=== PATIENT | female | born 1930 ===

== ENCOUNTER 2018-09-13 16:38 | Observation (INO) | payer MEDICARE, MEDICAID ==
--- NOTE | 2018-09-13 17:34 | C.PDOC ---
History Of Present Illness Patient is an 87 year old female with pmhx of DM, ESRD(HD MWF), HTN, HLD, CAD, arthritis who presents to ED today, sent in by Dialysis center for abnormal labs. Patient reports she recently started HD 3 months ago due to renal failure of unknown origin, and compliance with sessions as instructed. Paperwork from dialysis center reports HTN of 210/84 and hyperkalemia of 7.3 on labs taken Tuesday. Patient did not receive HD, and was sent to ED for further evaluation. Patient reports an episode of nausea this morning associated with worsening vertigo her PMD attributed to dialysis. Denies chest pain, palpitations, SOB, swelling. <Brandie White - Last Filed: 09/13/18 18:58> <Emperatriz Blevins - Last Filed: 09/13/18 18:40> History Per: Patient History/Exam Limitations: no limitations Additional History Per: Family <Brandie White - Last Filed: 09/13/18 18:58> Time Seen by Provider: 09/13/18 16:56 Chief Complaint (Nursing): Abnormal Labs Past Medical History Vital Signs: Last Vital Signs Temp 97.6 F 09/13/18 16:52 Pulse 66 09/13/18 16:52 Resp 18 09/13/18 16:52 BP 160/63 H 09/13/18 16:52 Pulse Ox 97 09/13/18 17:34 <Emperatriz Blevins - Last Filed: 09/13/18 18:40> Vital Signs: Last Vital Signs Temp 97.6 F 09/13/18 16:52 Pulse 66 09/13/18 16:52 Resp 18 09/13/18 16:52 BP 160/63 H 09/13/18 16:52 Pulse Ox 97 09/13/18 16:52 - Medical History PMH: Arthritis, Asthma, Diabetes, HTN, Hypercholesterolemia, End Stage Renal Disease Surgical History: CABG Other Surgeries: Aortic valve Family History: States: Unknown Family Hx - Social History Hx Alcohol Use: No Hx Substance Use: No - Immunization History Hx Tetanus Toxoid Vaccination: No Hx Influenza Vaccination: No Hx Pneumococcal Vaccination: Yes <Barndie White - Last Filed: 09/13/18 18:58> Review Of Systems Constitutional: Negative for: Weakness Eyes: Negative for: Vision Change Cardiovascular: Negative for: Chest Pain, Palpitations, Orthopnea, Edema Respiratory: Negative for: Cough, Shortness of Breath Gastrointestinal: Positive for: Nausea. Negative for: Vomiting Genitourinary: Positive for: Frequency (increased frequency) Neurological: Positive for: Dizziness <Brandie White - Last Filed: 09/13/18 18:58> Physical Exam - Physical Exam Appears: Non-toxic, No Acute Distress Skin: Normal Color, Warm, Dry Head: Atraumatic, Normacephalic Eye(s): bilateral: Normal Inspection, EOMI Oral Mucosa: Moist Neck: Normal Chest: Other (midline sternotomy scar, right dialysis chest port) Cardiovascular: Rhythm Regular, Murmur Respiratory: Normal Breath Sounds, No Decreased Breath Sounds, No Rales Gastrointestinal/Abdominal: Normal Exam, Bowel Sounds, Soft Extremity: No Pedal Edema, No Calf Tenderness Neurological/Psych: Oriented x3 <Brandie White - Last Filed: 09/13/18 18:58> ED Course And Treatment - Laboratory Results Result Diagrams: 09/13/18 18:13 09/13/18 18:13 <Emperatriz Blevins - Last Filed: 09/13/18 18:40> - Laboratory Results Result Diagrams: 09/13/18 18:13 09/13/18 18:13 Lab Interpretation: Abnormal Interpretation Of Abnormal: hyperkalemia ECG: Viewed By Ri ECG Rhythm: Sinus Rhythm, L BBB ECG Interpretation: Abnormal O2 Sat by Pulse Oximetry: 97 Pulse Ox Interpretation: Normal - Radiology CXR: Viewed By Me CXR Interpretation: Yes: No Acute Disease - Physician Consult Information Time Consulting Physician Contacted: 18:15 Physician Contacted: [place] Renee Outcome Of Conversation: Spoke with Dr. Renee who said Dr. Kim was covering and had put dialysis orders in for patient <Brandie White - Last Filed: 09/13/18 18:58> Supervising Attending Note - Supervising Attending Note Comment: RESIDENT - Attestation: I have personally seen and examined this patient.: Yes I have fully participated in the care of the patient.: Yes I have reviewed all pertinent clinical information, including history, physical exam and plan: Yes - Notes: Notes:: REFERRED FROM HD FOR HTN. UNABLE TO DO HD DUE TO HTN, REFERRED TO ER. PT DENIES SX @ THIS TIME. SP LAST ROUTINE HD 3 DAYS AGO. EXMA NEG. PER HD PAPERWORK, K = 7 ON 09/11, ?HEMOLYZED OR PREHD. ABN EKG, NO PRIOR. TX PRESUMPTIVE HYPERK, DR RENEE, ADMIT <Emperatriz Blevins - Last Filed: 09/13/18 18:40> Medical Decision Making Medical Decision Makin87 year old female sent in for evaluation and treatment of HTN and hyperkalemia CBC CMP UA EKG CXR Ca Gluc Insulin 10U/D50 ordered, on hold pending dialysis orders Spoke with Dr. Renee; he reports Dr. Kim who is covering is already aware of pt and will put dialysis orders in <Brandie White - Last Filed: 09/13/18 18:58> Disposition - Disposition Disposition Time: 18:40 - POA Present On Arrival: None <Emperatriz Blevins - Last Filed: 09/13/18 18:40> Discussed With : Ralph Kim Comment: Will admit patient Doctor Will See Patient In The: Hospital Counseled Patient/Family Regarding: Studies Performed, Diagnosis, Need For Followup <Brandie White - Last Filed: 09/13/18 18:58> - Disposition Disposition: HOSPITALIZED Condition: SERIOUS Forms: [facility] (Kyrgyz) - Clinical Impression Clinical Impression: Hyperkalemia, ESRD (end stage renal disease) on dialysis
[2018-09-13] MEDS ORDERED: Calcium Gluconate 4.65 MEQ in Dextrose 5% In Water 100 ML IV STA (17:38)
[2018-09-13] MEDS ORDERED: (Novolin R) Insulin Human Regular 100 units/ml vial IV STA (17:38)
[2018-09-13] MEDS ORDERED: Dextrose 50% SYRINGE Inj (50 ml) IVP STA (17:38)
[2018-09-13 18:23] LABS: BASO % 0.2 % (0.0-2.0); EOS # 0.1 K/uL (0.0-0.7); EOS % 1.2 % (0.0-4.0); HEMOGLOBIN 11.1 g/dL (11.0-16.0); LYMPH # 0.9 K/uL (1.0-4.3); LYMPH % 17.7 % (20.0-40.0); MEAN CELL VOLUME 94.9 fL (81.0-99.0); MEAN CORPUSCULAR HEMOGLOBIN 32.3 pg (27.0-31.0); MEAN PLATELET VOLUME 8.6 fL (7.2-11.7); MONO # 0.3 K/uL (0.0-0.8); MONO % 6.3 % (0.0-10.0); NEUT # 3.9 K/uL (1.8-7.0); NEUT % 74.6 % (50.0-75.0); RBC 3.43 Mil/uL (3.80-5.20); WHITE BLOOD COUNT 5.2 K/uL (4.8-10.8)
--- NOTE | 2018-09-13 18:26 | RAD ---
HISTORY: Palpations COMPARISON: None available. TECHNIQUE: Chest, one view. FINDINGS: Right IJ central venous dialysis catheter extends the cavoatrial/RA. LUNGS: Hypoinflation. No focal consolidation. Please note that chest x-ray has limited sensitivity for the detection of pulmonary masses. PLEURA: No significant pleural effusion identified. No definite pneumothorax . CARDIOVASCULAR: Median sternotomy wires. Borderline cardiomegaly. Atherosclerotic calcifications of the aorta. OSSEOUS STRUCTURES: Degenerative changes. VISUALIZED UPPER ABDOMEN: Unremarkable. OTHER FINDINGS: None. IMPRESSION: Right IJ dialysis catheter. Borderline cardiomegaly. Hypoinflation.
[2018-09-13 18:34] LABS: ALB/GLOB RATIO 1.6 (1.0-2.1); ALBUMIN 3.9 g/dL (3.5-5.0); CALCIUM 9.8 mg/dl (8.6-10.4)
[2018-09-13 18:41] LABS: PROTHROMBIN TIME 11.1 SECONDS (9.7-12.2)
[2018-09-13] MEDS ORDERED: (Novolin R) Insulin Human Regular 100 units/ml vial ONE (19:26)
[2018-09-13] MEDS ORDERED: Dextrose 50% SYRINGE Inj (50 ml) ONE (19:27)
[2018-09-13] MEDS ORDERED: Calcium Gluconate 4.65 mEq/10 ml Inj ONE (19:27)
[2018-09-13] MEDS ORDERED: Nitroglycerin 2% Ointment Foilpak UD TOP SCH (21:24)
[2018-09-14] MEDS ORDERED: Labetalol Hydrochloride 300 mg Tab PO ONE (00:21)
[2018-09-14] MEDS: Nitroglycerin 2% Ointment Foilpak UD TOP SCH ×2 (05:26→11:43)
[2018-09-14 06:06] LABS: SQUAMOUS EPITHIAL 1 /hpf (0-5); URINE BILIRUBIN NEGATIVE (NEGATIVE); URINE BLOOD NEGATIVE (NEGATIVE); URINE CLARITY Clear (Clear); URINE COLOR Yellow (YELLOW); URINE GLUCOSE (UA) NORMAL (Normal); URINE LEUKOCYTE ESTERASE NEG Leu/uL (Negative); URINE PROTEIN 2+ mg/dL (NEGATIVE); URINE UROBILINOGEN NORMAL mg/dL (0.2-1.0)
--- NOTE | 2018-09-14 11:03 | CP.PCM.CON ---
History of Present Illness - History of Present Illness History of Present Illness: Patient is an 87 year old female with pmhx of DM, ESRD(HD MWF), HTN, HLD, CAD, arthritis who presents to ED today, sent in by Dialysis center for abnormal labs. Patient reports she recently started HD 3 months ago due to renal failure of unknown origin, and compliance with sessions as instructed. Paperwork from dialysis center reports HTN of 210/84 and hyperkalemia of 7.3 on labs taken Tuesday. Patient did not receive HD, and was sent to ED for further evaluation. Patient reports an episode of nausea this morning associated with worsening vertigo her PMD attributed to dialysis. Denies chest pain, palpitations, SOB, swelling. Started dialysis 3 mos ago s/p CABG at [facility] has h/o hyperkalemia Vital Signs: Last Vital Signs Temp 97.6 F 09/13/18 16:52 Pulse 66 09/13/18 16:52 Resp 18 09/13/18 16:52 BP 160/63 H 09/13/18 16:52 Pulse Ox 97 09/13/18 16:52 - Medical History PMH: Arthritis, Asthma, Diabetes, HTN, Hypercholesterolemia, End Stage Renal Disease Surgical History: CABG Other Surgeries: Aortic valve Family History: States: Unknown Family Hx - Social History Hx Alcohol Use: No Hx Substance Use: No - Immunization History Hx Tetanus Toxoid Vaccination: No Hx Influenza Vaccination: No Hx Pneumococcal Vaccination: Yes <Brandie White - Last Filed: 09/13/18 18:58> Review Of Systems Constitutional: Negative for: Weakness Eyes: Negative for: Vision Change Cardiovascular: Negative for: Chest Pain, Palpitations, Orthopnea, Edema Respiratory: Negative for: Cough, Shortness of Breath Gastrointestinal: Positive for: Nausea. Negative for: Vomiting Genitourinary: Positive for: Frequency (increased frequency) Neurological: Positive for: Dizziness Review of Systems - Review of Systems All systems: reviewed and no additional remarkable complaints except - Constitutional Constitutional: Fatigue, Weakness - EENT Eyes: absent: As Per HPI, Blind Spots, Blurred Vision, Change in Vision, Decreased Night Vision, Diplopia, Discharge, Dry Eye, Exophthalmos, Floaters, Irritation, Itchy Eyes, Loss of Peripheral Vision, Pain, Photophobia, Requires Corrective Lenses, Sees Flashes, Spots in Vision, Tunnel Vision, Other Visual Disturbances, Loss of Vision, Other Ears: absent: As Per HPI, Decreased Hearing, Ear Discharge, Ear Pain, Tinnitus, Abnormal Hearing, Disequilibrium, Dizziness, Other Nose/Mouth/Throat: absent: As Per HPI, Epistaxis, Nasal Congestion, Nasal Discharge, Nasal Obstruction, Nasal Trauma, Nose Pain, Post Nasal Drip, Sinus Pain, Sinus Pressure, Bleeding Gums, Change in Voice, Dental Pain, Dry Mouth, Dysphagia, Halitosis, Hoarsness, Lip Swelling, Mouth Lesions, Mouth Pain, Odynophagia, Sore Throat, Throat Swelling, Tongue Swelling, Facial Pain, Neck Pain, Neck Mass, Other - Cardiovascular Cardiovascular: Dyspnea on Exertion - Gastrointestinal Gastrointestinal: Nausea - Genitourinary Genitourinary: Voiding Freq/Small Amts - Musculoskeletal Musculoskeletal: Muscle Weakness, Myalgias - Neurological Neurological: Dizziness, Weakness Past Patient History - Past Medical History & Family History Past Family History: Reviewed and not pertinent - Past Social History Smoking Status: Never Smoked Chewing Tobacco Use: No Cigar Use: No Alcohol: None Drugs: Denies Home Situation {Lives}: With Family - CARDIAC Hx Hypercholesterolemia: Yes Hx Hypertension: Yes - PULMONARY Hx Asthma: Yes - RENAL Type of Dialysis Access: rt. permacath Date of Last Dialysis Treatment: 09/11/18 - ENDOCRINE/METABOLIC Hx Diabetes Mellitus Type 2: Yes - MUSCULOSKELETAL/RHEUMATOLOGICAL Hx Arthritis: Yes - PSYCHIATRIC Hx Substance Use: No - SURGICAL HISTORY Hx Coronary Artery Bypass Graft: Yes - ANESTHESIA Hx Anesthesia: Yes Hx Anesthesia Reactions: No Hx Malignant Hyperthermia: No Meds Allergies/Adverse Reactions: Allergies Allergy/AdvReac Type Severity Reaction Status Date / Time No Known Allergies Allergy Verified 09/13/18 17:01 - Medications Medications: Current Medications Heparin Sodium (Porcine) (Heparin) 5,000 units SC Q8 [facility] Last Admin: 09/14/18 05:27 Dose: 5,000 units Labetalol HCl (Trandate) 600 mg PO BID [facility] Last Admin: 09/14/18 09:45 Dose: Not Given Nitroglycerin (Nitro-Bid 2% Oint) 1 ea TOP Q6 [facility] Last Admin: 09/14/18 05:26 Dose: 1 ea Physical Exam - Constitutional Appears: No Acute Distress, Chronically Ill - Head Exam Head Exam: ATRAUMATIC, NORMAL INSPECTION - Eye Exam Eye Exam: EOMI, Normal appearance - Neck Exam Neck exam: Positive for: Normal Inspection. Negative for: Tenderness - Respiratory Exam Respiratory Exam: Clear to Auscultation Bilateral, NORMAL BREATHING PATTERN - Cardiovascular Exam Cardiovascular Exam: REGULAR RHYTHM, +S1 - GI/Abdominal Exam GI & Abdominal Exam: Soft. absent: Tenderness - Extremities Exam Extremities exam: Positive for: normal inspection. Negative for: tenderness - Neurological Exam Neurological exam: Alert, Oriented x3 - Skin Skin Exam: Dry, Warm Results - Vital Signs Recent Vital Signs: Last Vital Signs Temp 98.1 F 09/14/18 08:48 Pulse 61 09/14/18 08:48 Resp 20 09/14/18 08:48 BP 180/65 H 09/14/18 08:48 Pulse Ox 96 09/14/18 08:48 - Labs Result Diagrams: 09/13/18 18:13 09/13/18 18:13 Labs: Laboratory Results - last 24 hr 09/13/18 09/13/18 09/13/18 16:49 18:13 18:13 WBC 5.2 RBC 3.43 L Hgb 11.1 Hct 32.5 L MCV 94.9 MCH 32.3 H MCHC 34.0 RDW 16.0 H Plt Count 146 MPV 8.6 Neut % (Auto) 74.6 Lymph % (Auto) 17.7 L [place] % (Auto) 6.3 Eos % (Auto) 1.2 Baso % (Auto) 0.2 Neut # (Auto) 3.9 Lymph # (Auto) 0.9 L [place] # (Auto) 0.3 Eos # (Auto) 0.1 Baso # (Auto) 0.0 PT INR APTT Sodium 133 Potassium 5.6 H Chloride 93 L Carbon Dioxide 30 Anion Gap 15 BUN 41 H Creatinine 4.6 H Est GFR ( Amer) 11 Est GFR (Non-Af Amer) 9 POC Glucose (mg/dL) 180 H Random Glucose 152 H Calcium 9.8 Total Bilirubin 0.6 AST 30 ALT 23 Alkaline Phosphatase 98 Total Protein 6.4 Albumin 3.9 Globulin 2.5 Albumin/Globulin Ratio 1.6 Urine Color Urine Clarity Urine pH Ur Specific [place] Urine Protein Urine Glucose (UA) Urine Ketones Urine Blood Urine Nitrate Urine Bilirubin Urine Urobilinogen Ur Leukocyte Esterase Urine WBC (Auto) Urine RBC (Auto) Ur Squamous Epith Cells 04/10/19 04/11/19 04/11/19 18:20 05:56 06:36 WBC RBC Hgb Hct MCV MCH MCHC RDW Plt Count MPV Neut % (Auto) Lymph % (Auto) [place] % (Auto) Eos % (Auto) Baso % (Auto) Neut # (Auto) Lymph # (Auto) [place] # (Auto) Eos # (Auto) Baso # (Auto) PT 11.1 INR 1.0 APTT 36 H Sodium Potassium Chloride Carbon Dioxide Anion Gap BUN Creatinine Est GFR ( Amer) Est GFR (Non-Af Amer) POC Glucose (mg/dL) 124 H Random Glucose Calcium Total Bilirubin AST ALT Alkaline Phosphatase Total Protein Albumin Globulin Albumin/Globulin Ratio Urine Color Yellow Urine Clarity Clear Urine pH 7.0 Ur Specific [place] 1.006 Urine Protein 2+ H Urine Glucose (UA) Normal Urine Ketones Negative Urine Blood Negative Urine Nitrate Negative Urine Bilirubin Negative Urine Urobilinogen Normal Ur Leukocyte Esterase Neg Urine WBC (Auto) 1 Urine RBC (Auto) < 1 Ur Squamous Epith Cells 1 Assessment & Plan (1) ESRD (end stage renal disease) on dialysis Status: Acute (2) Hyperkalemia Status: Acute (3) Hypertensive chronic kidney disease with stage 5 chronic kidney disease or end stage renal disease Status: Acute (4) CAD (coronary artery disease) Status: Acute (5) Type 2 diabetes mellitus with diabetic nephropathy Status: Acute - Assessment and Plan (Free Text) Plan: Immediate dialysis Ask vascular if AV access possible- told of poor veins Consider rx hyperkalemia if needed
[2018-09-14 11:38] VITALS: RESP 17
--- NOTE | 2018-09-14 12:43 | CARD ---
APPROVED REPORT Date of service: 09/13/2018 EKG Measurement Heart [id number] <Conclusion> Normal sinus rhythm Left bundle branch block Abnormal ECG
--- NOTE | 2018-09-14 14:26 | CP.PCM.CON ---
History of Present Illness - History of Present Illness History of Present Illness: Vascular Surgery Consult Note for Dr. Ellison 87 F PMH of DM, ESRD on HD (MWF), HTN, HLD, CAD, arthritis who was sent in by Dialysis center for abnormal labs. Patient started HD 3 months ago. Patient had HTN of 210/84 and hyperkalemia of 7.3 at dialysis. Vascular Surgery Consulted for HD access. Patient currently has permacath. She has history of poor venous access. Patient states she does not feel well but no specific complaint. PMH: Arthritis, Asthma, Diabetes, HTN, Hypercholesterolemia, End Stage Renal Disease PSH: CABG, Aortic valve ALL: NKDA Review of Systems - Review of Systems All systems: reviewed and no additional remarkable complaints except (as per HPI) Past Patient History - Past Medical History & Family History Past Family History: Reviewed and not pertinent - Past Social History Smoking Status: Never Smoked Chewing Tobacco Use: No Cigar Use: No Alcohol: None Drugs: Denies Home Situation {Lives}: With Family - CARDIAC Hx Hypercholesterolemia: Yes Hx Hypertension: Yes - PULMONARY Hx Asthma: Yes - RENAL Type of Dialysis Access: rt. permacath Date of Last Dialysis Treatment: 09/11/18 - ENDOCRINE/METABOLIC Hx Diabetes Mellitus Type 2: Yes - MUSCULOSKELETAL/RHEUMATOLOGICAL Hx Arthritis: Yes - PSYCHIATRIC Hx Substance Use: No - SURGICAL HISTORY Hx Coronary Artery Bypass Graft: Yes - ANESTHESIA Hx Anesthesia: Yes Hx Anesthesia Reactions: No Hx Malignant Hyperthermia: No Meds Home Medications: Home Medication List Medication Instructions Recorded Confirmed Type amLODIPine [Norvasc] 5 mg PO DAILY #30 tab 09/14/18 Rx Allergies/Adverse Reactions: Allergies Allergy/AdvReac Type Severity Reaction Status Date / Time No Known Allergies Allergy Verified 09/13/18 17:01 - Medications Medications: Current Medications Amlodipine Besylate (Norvasc) 5 mg PO DAILY [facility] Heparin Sodium (Porcine) (Heparin) 5,000 units SC Q8 [facility] Last Admin: 09/14/18 05:27 Dose: 5,000 units Heparin Sodium (Porcine) (Heparin (For Dialysis)) 4,000 units IVP TTS [facility] Stop: 09/20/18 12:31 Last Admin: 09/14/18 12:55 Dose: 4,000 units Labetalol HCl (Trandate) 600 mg PO BID [facility] Last Admin: 09/14/18 09:45 Dose: Not Given Nitroglycerin (Nitro-Bid 2% Oint) 1 ea TOP Q6 [facility] Last Admin: 09/14/18 11:43 Dose: Not Given Sodium Polystyrene Sulfonate (Kayexalate) 15 gm PO MWF [facility] Physical Exam - Additional Findings Additional findings: - Constitutional Appears: No Acute Distress, Chronically Ill - Head Exam Head Exam: ATRAUMATIC, NORMAL INSPECTION - Eye Exam Eye Exam: EOMI, Normal appearance - Neck Exam Neck exam: Positive for: Normal Inspection. Negative for: Tenderness - Respiratory Exam Respiratory Exam: Clear to Auscultation Bilateral, NORMAL BREATHING PATTERN - Cardiovascular Exam Cardiovascular Exam: REGULAR RHYTHM, +S1 - GI/Abdominal Exam GI & Abdominal Exam: Soft. absent: Tenderness - Extremities Exam Extremities exam: Positive for: normal inspection. Negative for: tenderness - Neurological Exam Neurological exam: Alert, Oriented x3 - Skin Skin Exam: Dry, Warm Results - Vital Signs Recent Vital Signs: Last Vital Signs Temp 97.5 F L 09/14/18 10:00 Pulse 65 09/14/18 10:59 Resp 17 09/14/18 10:59 BP 179/63 H 09/14/18 13:00 Pulse Ox 100 09/14/18 10:00 - Labs Result Diagrams: 09/13/18 18:13 09/13/18 18:13 Labs: Laboratory Results - last 24 hr 09/13/18 09/13/18 09/13/18 16:49 18:13 18:13 WBC 5.2 RBC 3.43 L Hgb 11.1 Hct 32.5 L MCV 94.9 MCH 32.3 H MCHC 34.0 RDW 16.0 H Plt Count 146 MPV 8.6 Neut % (Auto) 74.6 Lymph % (Auto) 17.7 L [place] % (Auto) 6.3 Eos % (Auto) 1.2 Baso % (Auto) 0.2 Neut # (Auto) 3.9 Lymph # (Auto) 0.9 L [place] # (Auto) 0.3 Eos # (Auto) 0.1 Baso # (Auto) 0.0 PT INR APTT Sodium 133 Potassium 5.6 H Chloride 93 L Carbon Dioxide 30 Anion Gap 15 BUN 41 H Creatinine 4.6 H Est GFR ( Amer) 11 Est GFR (Non-Af Amer) 9 POC Glucose (mg/dL) 180 H Random Glucose 152 H Calcium 9.8 Total Bilirubin 0.6 AST 30 ALT 23 Alkaline Phosphatase 98 Total Protein 6.4 Albumin 3.9 Globulin 2.5 Albumin/Globulin Ratio 1.6 Urine Color Urine Clarity Urine pH Ur Specific [place] Urine Protein Urine Glucose (UA) Urine Ketones Urine Blood Urine Nitrate Urine Bilirubin Urine Urobilinogen Ur Leukocyte Esterase Urine WBC (Auto) Urine RBC (Auto) Ur Squamous Epith Cells 09/13/18 09/14/18 09/14/18 18:20 05:56 06:36 WBC RBC Hgb Hct MCV MCH MCHC RDW Plt Count MPV Neut % (Auto) Lymph % (Auto) [place] % (Auto) Eos % (Auto) Baso % (Auto) Neut # (Auto) Lymph # (Auto) [place] # (Auto) Eos # (Auto) Baso # (Auto) PT 11.1 INR 1.0 APTT 36 H Sodium Potassium Chloride Carbon Dioxide Anion Gap BUN Creatinine Est GFR ( Amer) Est GFR (Non-Af Amer) POC Glucose (mg/dL) 124 H Random Glucose Calcium Total Bilirubin AST ALT Alkaline Phosphatase Total Protein Albumin Globulin Albumin/Globulin Ratio Urine Color Yellow Urine Clarity Clear Urine pH 7.0 Ur Specific [place] 1.006 Urine Protein 2+ H Urine Glucose (UA) Normal Urine Ketones Negative Urine Blood Negative Urine Nitrate Negative Urine Bilirubin Negative Urine Urobilinogen Normal Ur Leukocyte Esterase Neg Urine WBC (Auto) 1 Urine RBC (Auto) < 1 Ur Squamous Epith Cells 1 09/14/18 11:57 WBC RBC Hgb Hct MCV MCH MCHC RDW Plt Count MPV Neut % (Auto) Lymph % (Auto) [place] % (Auto) Eos % (Auto) Baso % (Auto) Neut # (Auto) Lymph # (Auto) [place] # (Auto) Eos # (Auto) Baso # (Auto) PT INR APTT Sodium Potassium Chloride Carbon Dioxide Anion Gap BUN Creatinine Est GFR ( Amer) Est GFR (Non-Af Amer) POC Glucose (mg/dL) 201 H Random Glucose Calcium Total Bilirubin AST ALT Alkaline Phosphatase Total Protein Albumin Globulin Albumin/Globulin Ratio Urine Color Urine Clarity Urine pH Ur Specific [place] Urine Protein Urine Glucose (UA) Urine Ketones Urine Blood Urine Nitrate Urine Bilirubin Urine Urobilinogen Ur Leukocyte Esterase Urine WBC (Auto) Urine RBC (Auto) Ur Squamous Epith Cells Assessment & Plan - Assessment and Plan (Free Text) Assessment: 87 F with ESRD on HD Plan: -Vein mapping -Continue HD with permacath as per Nephro -Will evaluate for AVF -Management as per primary -Discussed with Terra Alonso PGY2 - Date & Time Date: 09/14/18 Time: 15:00
[2018-09-14 14:41] VITALS: BP 103/47; TEMP 97.3; O2SAT 99
[2018-09-14 14:59] VITALS: PULSE 69
--- NOTE | 2018-09-14 15:34 | CP.PCM.PN ---
Subjective - Date & Time of Evaluation Date of Evaluation: 09/14/18 Time of Evaluation: 15:00 - Subjective Subjective: Patient seen after HD today denies any chest pain, sob, dizziness vss- stable s/p HD today Objective - Vital Signs/Intake and Output Vital Signs (last 24 hours): Temp Pulse Resp BP Pulse Ox 97.3 F L 65 17 103/47 L 99 09/14/18 13:20 09/14/18 13:20 09/14/18 13:20 09/14/18 13:20 09/14/18 13:20 - Medications Medications: Current Medications Amlodipine Besylate (Norvasc) 5 mg PO DAILY [facility] Heparin Sodium (Porcine) (Heparin) 5,000 units SC Q8 [facility] Last Admin: 09/14/18 14:55 Dose: Not Given Heparin Sodium (Porcine) (Heparin (For Dialysis)) 4,000 units IVP TTS [facility] Stop: 09/20/18 12:31 Last Admin: 09/14/18 12:55 Dose: 4,000 units Labetalol HCl (Trandate) 600 mg PO BID [facility] Last Admin: 09/14/18 09:45 Dose: Not Given Nitroglycerin (Nitro-Bid 2% Oint) 1 ea TOP Q6 [facility] Last Admin: 09/14/18 11:43 Dose: Not Given Sodium Polystyrene Sulfonate (Kayexalate) 15 gm PO MWF [facility] - Labs Labs: 09/13/18 18:13 09/13/18 18:13 PT 11.1 SECONDS (9.7-12.2) 09/13/18 18:20 INR 1.0 09/13/18 18:20 APTT 36 SECONDS (21-34) H 09/13/18 18:20 Assessment and Plan - Assessment and Plan (Free Text) Assessment: a/p 87 year old female with pmhx of DM, ESRD(HD MWF), HTN, HLD, CAD, arthritis who presents to ED today, sent in by Dialysis center for abnormal labs. Paperwork from dialysis center reports HTN of 210/84 and hyperkalemia of 7.3 on labs taken Tuesday. Patient did not receive HD, and was sent to ED for further evaluation. PT ALOS REPOERTED episode of nausea this morning and admitted with Hyperkalemia, ESRD needs on dialysis Patient received d50 with insulin and calcium gluconate for hyperkalemia HD done today and patient denies any complaints vein mapping done for AV fistula D/w Surgical team , fanny bone rdischarge home today and f/u with Dr. López office out patient for AV fistula Discussed with Dr. Kim, cleared for discharge home today and f/u with PMD and continue HD as scheduled discharge plan discussed with patient vis circuit court judge system , who understands and agrees with plan
--- NOTE | 2018-09-14 22:36 | CP.PCM.HP ---
Present on Admission - Present on Admission Any Indicators Present on Admission: No Past Patient History - Past Medical History & Family History Past Family History: Reviewed and not pertinent - Past Social History Smoking Status: Never Smoked Chewing Tobacco Use: No Cigar Use: No Alcohol: None Drugs: Denies Home Situation {Lives}: With Family - CARDIAC Hx Hypercholesterolemia: Yes Hx Hypertension: Yes - PULMONARY Hx Asthma: Yes - RENAL Type of Dialysis Access: rt. permacath Date of Last Dialysis Treatment: 09/11/18 - ENDOCRINE/METABOLIC Hx Diabetes Mellitus Type 2: Yes - MUSCULOSKELETAL/RHEUMATOLOGICAL Hx Arthritis: Yes - PSYCHIATRIC Hx Substance Use: No - SURGICAL HISTORY Hx Coronary Artery Bypass Graft: Yes - ANESTHESIA Hx Anesthesia: Yes Hx Anesthesia Reactions: No Hx Malignant Hyperthermia: No Meds Home Medications: Home Medication List Medication Instructions Recorded Confirmed Type amLODIPine [Norvasc] 5 mg PO DAILY #30 tab 09/14/18 Rx Allergies/Adverse Reactions: Allergies Allergy/AdvReac Type Severity Reaction Status Date / Time No Known Allergies Allergy Verified 09/13/18 17:01 Results - Vital Signs Recent Vital Signs: Last Vital Signs Temp 97.3 F L 09/14/18 13:20 Pulse 65 09/14/18 13:20 Resp 17 09/14/18 13:20 BP 103/47 L 09/14/18 13:20 Pulse Ox 99 09/14/18 13:20 - Labs Result Diagrams: 09/13/18 18:13 09/13/18 18:13 Labs: Laboratory Results - last 24 hr 09/14/18 09/14/18 09/14/18 05:56 06:36 11:57 POC Glucose (mg/dL) 124 H 201 H Urine Color Yellow Urine Clarity Clear Urine pH 7.0 Ur Specific [place] 1.006 Urine Protein 2+ H Urine Glucose (UA) Normal Urine Ketones Negative Urine Blood Negative Urine Nitrate Negative Urine Bilirubin Negative Urine Urobilinogen Normal Ur Leukocyte Esterase Neg Urine WBC (Auto) 1 Urine RBC (Auto) < 1 Ur Squamous Epith Cells 1
--- NOTE | 2018-09-15 03:44 | HP ---
CHIEF COMPLAINT: Abnormal labs. HISTORY OF PRESENT ILLNESS: This is an 87-year-old female with history of type 2 diabetes, hypertension, hyperlipidemia, coronary artery disease, status post CABG, osteoarthritis, CKD, on hemodialysis Tuesday, Tuesday and Tuesday. Followed up by Dr. Wagner. On the day of admission, she came to dialysis unit for her routine hemodialysis, and she was found to have abnormal labs and high blood pressure. Then, she was referred to emergency room. According to the patient, she was started on hemodialysis few months ago. Exact etiology of renal failure is unknown, but it seemed like a diabetic kidney disease. In the dialysis unit, the patient was found to have a potassium of 7.3 with a blood pressure of 210/84. The patient was weak. Since then, the patient was referred to the emergency room. Today when I saw the patient, she was in dialysis unit, undergoing hemodialysis, feeling better. The patient has . She denies any dyspnea, orthopnea, or PND. She is weak. She is tired. She is fatigued. She has palpitation. She has nausea. She did not have vomiting. She feels generalized weakness. There is no history of chest pain, coughing, shortness of breath or sweating. There is no history of polyuria, polydipsia, or polyphagia. There is no history of hematuria or pyuria. There is no history of sneezing, itchy eyes, or itchy nose. There is no history of cough, sore throat or runny nose. Denies knee pain, leg pain. There is tingling, numbness, and paresthesias of the feet. There is no history of sneezing, sneezing, itchy eyes, or itchy nose. There is no history of fever or chills. There is no history of loss of consciousness or seizure-like activity. PAST MEDICAL HISTORY: Hypertension, hyperlipidemia, CKD, on hemodialysis, and diabetes. SOCIAL HISTORY: Nonsmoker, non-ETOH user. CURRENT MEDICATIONS: She is on labetalol 200 mg b.i.d. and amlodipine 5 mg daily. FAMILY HISTORY: Noncontributory. PHYSICAL EXAMINATION: GENERAL: An elderly female, on hemodialysis machine, in no acute distress. VITAL SIGNS: Blood pressure 102/47, pulse 65, respiratory rate 17, temperature 97.3. SKIN: Senile turgor. No bruises. No purpura. No petechia. HEENT: Atraumatic and normocephalic. Negative pallor. Negative jaundice. NECK: Supple. No JVD. No lymph node. No thyromegaly. No carotid bruits. CHEST WALL: Bilateral symmetrical expansion. No tenderness. No deformity. LUNGS: Bilateral basal rales. Decreased air entry. No rub. CARDIOVASCULAR SYSTEM: S1 and S2, regular. Has 2/6 systolic ejection murmur at the apex and a midline scar of old CABG. ABDOMEN: Soft and nontender. Bowel sounds are positive. RECTAL: Deferred because the patient is on dialysis machine. PELVIS: Deferred because the patient is on dialysis machine. CENTRAL NERVOUS SYSTEM: Alert and oriented x3. Cranial nerves II through XII are normal. Moving all extremities. ASSESSMENT: 1. Hyperkalemia, chronic kidney disease. 2. Accelerated hypertension, rule out hypertensive heart disease. 3. History of type 2 diabetes. 4. Hyperlipidemia. PLAN: Admit. Emergency hemodialysis. Monitor the patient. Ralph Kim MD
--- NOTE | 2018-09-15 11:39 | VASCLAB ---
Date of service: 09/14/2018 PROCEDURE: Bilateral Upper Extremity Venous Mapping HISTORY: Vein mapping, Pre-op AVF, ESRD. PRIORS: None. TECHNIQUE: Bilateral upper extremity, internal jugular, subclavian, axillary, brachial, ulnar, radial, basilic and upper cephalic veins were evaluated. Flow was assessed with color Doppler, compressibility, assessment of phasic flow and augmentation response. Report prepared by FLAVIO Patton FINDINGS: RIGHT: 1. Internal Jugular Vein: Compressibility - Fully compressible: Thrombus - None : Flow - Phasic 2. Subclavian Vein: Catheter in area. 3. Axillary Vein: Compressibility - Fully compressible: Thrombus - None 4. Brachial Vein: Compressibility - Fully compressible: Thrombus - None 5. Ulnar Vein:Compressibility - Fully compressible: Thrombus - None 6. Radial Vein:Compressibility - Fully compressible: Thrombus - None 7. Cephalic Vein: Compressibility - Fully compressible: thrombus - None 7.1. Upper Arm: Proximal Diameter: 0.18cm. Mid Diameter: 0.21cm. Distal Diameter: 0.09cm. 7.2. Forearm: Diminutive caliber, unable to image 8. Basilic Vein:Compressibility - Fully compressible: thrombus - None 8.1. Upper Arm:Proximal Diameter: 0.56 Mid Diameter: 0.28cm. Distal Diameter: 0.23cm. 8.2. Forearm: Proximal Diameter: 0.19cm. Mid Diameter:0.19cm. Distal Diameter: 0.24cm. LEFT: 1. Internal Jugular Vein: Compressibility - Fully compressible: Thrombus - None : Flow - Phasic 2. Subclavian Vein:Compressibility - Fully compressible: Thrombus - None : Flow - Phasic 3. Axillary Vein: Compressibility - Fully compressible: Thrombus - None 4. Brachial Vein: Compressibility - Fully compressible: Thrombus - None 5. Ulnar Vein:Compressibility - Fully compressible: Thrombus - None 6. Radial Vein:Compressibility - Fully compressible: Thrombus - None 7. Cephalic Vein: Compressibility - Fully compressible: thrombus - None 7.1. Upper Arm: Proximal Diameter: 0.22cm. Mid Diameter: 0.15cm. Distal Diameter: 0.19cm. 7.2. Forearm: Proximal Diameter: 0.17cm. 8. Basilic Vein:Compressibility - Fully compressible: thrombus - None 8.1. Upper Arm:Proximal Diameter: 0.45cm. Mid Diameter: 0.24cm. Distal Diameter: 0.21cm. 8.2. Forearm: Proximal Diameter: 0.14 OTHER FINDINGS: No evidence of venous thrombosis in bilateral upper extremities. IMPRESSION: Refer to the above listed measurements for vein size.
== END 2018-09-14 16:37 | disposition home or self-care (01) ==
LOC: C.ER 16:38 → C.9E 18:37 → C.6T 19:45
PROVIDERS: ADMIT Internal Medicine; ATTEND Internal Medicine
DX: I12.0 Hypertensive chronic kidney disease with stage 5 chronic kidney disease or end stage renal disease (principal); I25.10 Atherosclerotic heart disease of native coronary artery without angina pectoris; J45.909 Unspecified asthma, uncomplicated; N18.6 End stage renal disease; Z79.899 Other long term (current) drug therapy; Z95.1 Presence of aortocoronary bypass graft; Z99.2 Dependence on renal dialysis; E11.22 Type 2 diabetes mellitus with diabetic chronic kidney disease; E78.00 Pure hypercholesterolemia, unspecified; E78.5 Hyperlipidemia, unspecified; E87.5 Hyperkalemia
CPT/HCPCS: 71045; 80053; 81001; 82948; 85025; 85610; 85730; 93005; 96374; 99284; G0365; G0378; J0610; J1644